=== PATIENT | female | born 1995 | race Caucasian/White ===

== ENCOUNTER 2018-09-28 19:58 | Emergency (ER) | payer SELFPAY ==
[2018-09-28 20:03] VITALS: BP 156/91; PULSE 71; RESP 16; TEMP 36.5; O2SAT 100
--- NOTE | 2018-09-28 20:11 | ED.GENADUL_ITS ---
Discharge Plan Disposition Patient Disposition: HOME Condition: Good Discharge Details Chief Complaint: DentalOral Clinical Impression: Infected dental carries Primary Care Provider: Unknown,Unknown ED Provider: Darrell Davalos Home Meds and New Rx's Prescriptions: New acetaminophen [Mapap Extra Strength] 500 MG tablet 1,000 mg PO Q6H 5 Days Qty: 60 RF: 0 ibuprofen [Motrin IB] 200 MG tablet 600 mg PO Q6H 5 Days Qty: 60 RF: 0 amoxicillin-pot clavulanate [Augmentin] 875-125 mg tablet 1 tab PO BID Qty: 14 RF: 0 No Action acetaminophen [Tylenol Extra Strength] 500 mg Tablet 1,000 mg PO Q6H PRNRF: 0 Discharge Instructions Instructions: Dental Caries (ED) Additional Instructions: Please take the medication as directed. Please follow-up immediately with your dentist. If you notice any worsening of your symptoms, or any new symptoms such as vomiting, diarrhea, fever, chills, shortness of breath, chest pain, numbness, weakness, or fainting , please return immediately to the emergency department for reevaluation. Please follow up with your primary care provider as soon as possible for reassessment and reevaluation. As always, it was a pleasure participating in your medical care today. Medical Decision Making This is a 23-year-old female who presents for dental pain in the left upper tooth the last 1-2 weeks. She states that she does not have dental insurance nor does she have a dentist. Physical exam demonstrates mild dental caries but no evidence of dental abscess. No other concerning physical exam findings. Vital signs are reassuring. Patient will be given antibiotics for her dental caries. We will give Motrin here. I discussed the risks and benefits of a dental block the patient is requesting a dental block. Dental block was performed and the patient had complete resolution of her symptoms. We will give a dental research lab assistant sheet for local dentist in the area. I have extensively reviewed the treatment plan and discharge instructions with the patient and their family. I have addressed all patient concerns at this time. The patient and family was made aware of what symptoms to monitor for that would warrant a return to the emergency department. Discussed the plan with the patient and family, they demonstrate verbal understanding and agreement with our assessment and plan at this time. Time out was taken to identify the correct patient, procedure, and site. Risks and benefits were discussed with the patient and consent was obtained. Direct pressure was held over the area prior to the procedure to reduce painful injection. 5 cc?s of Lidocaine 1% and Bupivacaine 0.25% was instilled into the left upper supravalvular area with a 27 gauge needle.Complete analgesia was obtained. The patient tolerated the procedure. There were no complications. HPI General Date/Time Provider Initiated Documentation: 09/28/18 20:00 . HPI Narrative: This is a 23-year-old female no significant past medical history who presents today for evaluation of left upper dental pain. The patient states that for the last 1-2 weeks she has had pain in her left upper posterior molar. 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 She denies any fever or chills. She denies any difficulty swallowing. She denies any neck pain or stiffness. She denies any significant swelling. She has taken Tylenol but this does not improve the symptoms with this. She has no other complaints at this time. No other modifying factors. She is not on any antibiotics. No recent surgeries, no pertinent family history. She denies any IV or illicit drug use Related Data Home Medications Medication Instructions Recorded Confirmed acetaminophen [Mapap Extra 1,000 mg PO Q6H 5 Days #60 tab 09/28/18 Strength] acetaminophen [Tylenol Extra 1,000 mg PO Q6H PRN 09/28/18 09/28/18 Strength] amoxicillin-pot clavulanate 1 tab PO BID #14 tab 09/28/18 [Augmentin] ibuprofen [Motrin Ib] 600 mg PO Q6H 5 Days #60 tab 09/28/18 Previous Rx's Medication Instructions Recorded acetaminophen [Mapap Extra 1,000 mg PO Q6H 5 Days #60 tab 09/28/18 Strength] amoxicillin-pot clavulanate 1 tab PO BID #14 tab 09/28/18 [Augmentin] ibuprofen [Motrin Ib] 600 mg PO Q6H 5 Days #60 tab 09/28/18 Allergies Allergy/AdvReac Type Severity Reaction Status Date / Time No Known Allergies Allergy Unverified 09/28/18 20:07 General Stated Complaint: DentalOral PATRICIA: 4 Review of Systems Review of Systems All systems reviewed & are unremarkable except as noted in HPI and below PFSH Social History Smoking/Tobacco Use Status: Never Exam Narrative Exam Narrative: 1.Const: Well-nourished, Well-developed, appearing stated age 2.Eyes: PERRL, no conjunctival injection, and symmetrical lids. 3.ENT: Atraumatic external nose and ears. Moist MM. Neck: Symmetric, trachea midline, No thyromegaly. No evidence of trismus. No drainage or signs of perioral or dental abscess. Left posterior molar does demonstrate tenderness on palpation, evidence of dental caries, but no evidence of minh abscess or drainage. Patient demonstrates good movement of cervical neck. There is no nuchal rigidity, no nuchal tenderness. Patient is able to flex the neck without any difficulty or significant pain. Negative Kernig's and Brudzinski sign. No evidence of airway compromise, or tonsillar exudate or erythema 4.CVS: +S1/S2, No murmurs or gallops. Peripheral pulses 2+ and equal in all extremities. Brisk capillary refill in all extremities. 5.RESP: Unlabored respiratory effort. Clear to auscultation bilaterally. No wheezes rales or rhonchi 6.GI: Soft, Nontender/Nondistended, No hepatosplenomegaly. No guarding or rebound. 7.MSK: Normocephalic/Atraumatic, Extremities w/o deformity or ttp No cyanosis or clubbing, Normal movement of all extremities 8.Skin: Warm, Dry. No rashes or lesions. 9.Neuro: temperature logging operator II-XII grossly intact. Sensation grossly intact, no focal neurologic deficits. 10.Psych: (AAO) x3. Appropriate mood and affect Course Vital Signs Temperature 36.5 C 09/28/18 20:03 Pulse 71 09/28/18 20:03 Respiratory Rate 16 09/28/18 20:03 Blood Pressure 156/91 H 09/28/18 20:03 Pulse Oximetry 100 09/28/18 20:03 Temperature 36.5 C 09/28/18 20:03 Temperature Source Skin 09/28/18 20:03 Pulse 71 09/28/18 20:03 Respiratory Rate 16 09/28/18 20:03 Blood Pressure 156/91 H 09/28/18 20:03 Blood Pressure Position Sitting 09/28/18 20:03 Pulse Oximetry 100 09/28/18 20:03 Oxygen Delivery Method Room Air 09/28/18 20:03 Oxygen Flow Rate 0 09/28/18 20:03 Pain Level 9 09/28/18 20:03
[2018-09-28] MEDS: Ibuprofen 800 MG TAB PO (20:15)
[2018-09-28] MEDS: Amoxicillin 875/Clav. 125 TAB PO (20:16)
== END 2018-09-28 20:25 | disposition home or self-care (01) ==
LOC: ER 20:52
PROVIDERS: Emergency Provider Student in an Organized Health Care Education/Training Program
DX: K02.9 Dental caries, unspecified (principal)
CPT/HCPCS: 64400